=== PATIENT | female | born 1970 | race Caucasian/White ===

== ENCOUNTER 2022-05-25 06:16 | Day surgery (SDC) | payer MEDICAID ==
[~2022-05-25 06:16] MED LIST: Lactated Ringers 1,000 ML IV SCH; Sodium Chloride 0.9% 10 ML Syringe FLUSH PRN
[2022-05-25] MEDS ORDERED: Ketorolac 30 MG/ML SDV IVPUSH ONE (06:17)
[2022-05-25] MEDS ORDERED: fentaNYL 100 MCG/2 ML SDV IV ONE (06:17)
[2022-05-25] MEDS ORDERED: Dexamethasone 4 MG/ML 5 ML MDV IVPUSH ONE (06:17)
[2022-05-25] MEDS ORDERED: Rocuronium 100 MG/10 ML MDV IV ONE (06:17)
[2022-05-25] MEDS ORDERED: Midazolam 1 MG/ML 2 ML SDV IV ONE (06:17)
[2022-05-25] MEDS ORDERED: Lactated Ringers 1,000 ML IV ONE (06:17)
[2022-05-25] MEDS ORDERED: Lidocaine 2% 5 ML SDV IV ONE (06:17)
[2022-05-25] MEDS ORDERED: Propofol 200 MG/20 ML SDV IV ONE (06:17)
[2022-05-25] MEDS ORDERED: Ondansetron 4 MG/2 ML SDV IVPUSH ONE (06:17)
[2022-05-25] MEDS ORDERED: Sugammadex Sodium 200 MG/2 ML VIAL IV ONE (06:17)
[2022-05-25] MEDS ORDERED: ceFAZolin 2 GM in Premix Bag 1 BAG IV ONE (07:42)
[2022-05-25] MEDS ORDERED: Bupivacaine 0.5%/EPINEPHrine 1:200,000 10 ML SDV INJECT ONE (08:09)
[2022-05-25] MEDS ORDERED: Acetaminophen/HYDROcodone 325-5 MG Tab PO ONE (10:00)
== END 2022-05-25 11:24 | disposition home or self-care (01) ==
LOC: FB.SDS 06:16
PROVIDERS: ATTEND Surgery
DX: K80.10 Calculus of gallbladder with chronic cholecystitis without obstruction (principal); F41.9 Anxiety disorder, unspecified; F32.A Depression, unspecified; E55.9 Vitamin D deficiency, unspecified; E03.9 Hypothyroidism, unspecified; G43.909 Migraine, unspecified, not intractable, without status migrainosus; Z98.890 Other specified postprocedural states; Z90.49 Acquired absence of other specified parts of digestive tract; Z79.899 Other long term (current) drug therapy; Z79.890 Hormone replacement therapy; Z79.4 Long term (current) use of insulin; Z91.012 Allergy to eggs; Z88.1 Allergy status to other antibiotic agents; Z91.010 Allergy to peanuts; Z88.2 Allergy status to sulfonamides
CPT/HCPCS: 00790-QZ; 88304; 94150; J0690; J1100; J1885; J2250; J2405; J2704; J3010; J3490; J7120